=== PATIENT | female | born 1985 | race Caucasian/White ===

== ENCOUNTER 2016-07-07 03:33 | Observation (INO) | payer BC ==
[2016-07-07] MEDS ORDERED: HYDROmorphone INJ* 1 MG/ML CARPUJECT SYRINGE IV PRN ×2 (03:50→10:33)
[2016-07-07] MEDS ORDERED: Ondansetron INJ* 2 MG/ML VIAL IV PRN (03:50)
[2016-07-07] MEDS ORDERED: HYDROmorphone INJ* 1 MG/ML CARPUJECT SYRINGE ONE ×2 (05:28→10:46)
[2016-07-07 06:47] LABS: Hematocrit 25 % (35-47); Hemoglobin 8.1 g/dl (12.0-16.0); Mean Corpuscular HGB Conc 32 g/dl (31-36); Mean Corpuscular Hemoglobin 24 pg (27-31); Mean Corpuscular Volume 75 fL (80-97); Mean Platelet Volume 9 um3 (7.4-10.4); Red Blood Count 3.36 10^6/ul (4.0-5.4); Red Cell Distribution Width 16 % (10.5-15); White Blood Count 9.9 10^3/ul (3.5-10.8)
[2016-07-07 07:05] LABS: BUN/Creatinine Ratio 16.9 (8-20); Calcium 8.5 mg/dL (8.6-10.3); EGFR African American 136.7 (>60); EGFR Non-African American 106.3 (>60)
--- NOTE | 2016-07-07 07:59 | HP ---
DATE OF ADMISSION: 07/07/16 HISTORY OF PRESENT ILLNESS: I was contacted in the overnight by surgeon in [place] regarding Ms. Campbell, a 31-year-old female. She is status post gastric bypass procedure in December 2012 who was mostly lost to follow up and did move out of town. Patient had presented to [facility] in [place] yesterday with an almost one-day history of abdominal pain. Patient's workup in the ER included labs and a CT scan; these were reviewed. There was a consideration of an internal hernia, and patient's surgeon asked to have her transferred to our institution since they do not have bariatric coverage. An ER to ER transfer was agreed upon, and patient presented to our ER early this morning. Patient was seen by the ER doctors, and the case again discussed with me. Patient describes the onset of pain on Wednesday, accompanied with decreased appetite, mild obstipation. Pain mostly on the right side and right upper quadrant. Patient denied any previous similar symptoms, alleviated only by narcotics while hospitalized. No exacerbating factors. No constipation or diarrhea; however, patient has been recently started on Remicade for ulcerative colitis. PAST MEDICAL HISTORY: 1. Ulcerative colitis. 2. Morbid obesity. PAST SURGICAL HISTORY: 1. Karen-en-Y gastric bypass as described. No other abdominal surgeries. MEDICATIONS: Include Remicade. Patient does not routinely take her multivitamins. ALLERGIES: List reviewed. FAMILY HISTORY: Non-contributory. SOCIAL HISTORY: Patient smokes about 1-2 cigarettes a week. 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 Denies alcohol use. Still has a feeling of fullness. REVIEW OF SYSTEMS: No headaches, no shortness of breath, no chest pain. Weight loss of approximately 100 lbs since starting the program; but, about 85 lbs since surgery. Patient had gotten as low as 190 lbs, but now is 212. Change in bowel habits as described above, with history of ulcerative colitis. No dysuria. No bleeding or clotting disorders. However, patient has episodes of anemia secondary to the bypass, and likely the ulcerative colitis. Patient has fair exercise tolerance, but does not exercise on a regular basis. No psychiatric disorders. No recent hospitalizations. Patient denies any visual disturbances. She has not passed out since approximately 2013. She does get dizzy at times. No metabolic or endocrine disorders other than the obesity listed. PHYSICAL EXAMINATION GENERAL: She's alert and oriented x3. No apparent distress. VITAL SIGNS: On exam today, she's afebrile at 98.2, blood pressure 110/48, heart rate 74, respirations 16, O2 sat 97. HEENT: Normocephalic, atraumatic. Sclerae anicteric, mucous membranes moist. NECK: No lymphadenopathy. LUNGS: Clear to auscultation bilaterally. ABDOMEN: Soft, obese, tender on deep palpation in the right upper quadrant and epigastrium. No masses or hernias noted on the abdomen. Well-healed surgical incisions. RECTAL EXAM: Not performed. No CVA tenderness. EXTREMITIES: 1+ pitting edema bilaterally. No cyanosis. LABORATORY DATA FROM [facility]: Reviewed, and show white count 7.2 , H and H 9.3/29.2, with an MCV of 77. Metabolic panel shows sodium 135, calcium 8.5, albumin 3.1, normal transaminases, normal bilirubin. Patient underwent a CAT scan - these images, as well as the report, were reviewed. Normal-appearing gall bladder that is mildly distended, consistent with not eating. Small bowel mesentery shows some inflammatory changes and mesenteric lymphadenopathy. There's no obstruction, but does look consistent with an internal hernia. IMPRESSION: Abdominal pain three years status post gastric bypass in a patient who still has her gall bladder but shows radiographic evidence likely of an internal hernia. RECOMMENDATION: A diagnostic laparoscopy and repair of internal hernia. I've outlined the details of the procedure with her and her mother, going over the risks, benefits and alternatives. I do not recommend watchful waiting at this time, and patient wishes to proceed. We spoke of the possibility of requiring bowel resection and prolonged hospitalization. We also discussed the possible complications which included but are not limited to bleeding, infection, need for open procedure, need for additional procedures, intraabdominal infection, recurrence, and ventral hernia. Patient agrees to proceed. Will get her to the OR soon. She'll be NPO on IV fluids. She'll receive a dose of pre- operative antibiotics. We also discussed the need to get Ms. Campbell back into routine follow-up bariatric care. I believe she would benefit seeing us regularly, and I'd like to refer her for the nut former and for an exercise program. Patient and patient's mother are willing to go in this direction. Will have this discussion at time of discharge. CC: [facility]; Dr. Ayanna Alva; Dr. Alexx Magaña * [id number]/[facility] #: [id number] MTDD
[2016-07-07] MEDS ORDERED: Clindamycin 900 MG IVPREMIX(* 900 MG/50 ML SDV IV ONE ×2 (08:00→09:11)
[2016-07-07 08:32] LABS: UR Preg Kit Lot# 6060104
[2016-07-07 08:33] LABS: Manual Entry Verification AS; UR Preg Internal Control QC Line Present
[2016-07-07] MEDS ORDERED: Bupivacaine 0.25% EPI 200,000* 30 ML SDV ONE (08:33)
[2016-07-07] MEDS ORDERED: fentaNYL* 50 MCG/ML 2 ML VIAL (100 MCG VIAL) ONE ×3 (09:22→10:55)
[2016-07-07] MEDS ORDERED: Midazolam* 1 MG/ML 2 ML VIAL (2 MG) ONE (09:22)
[2016-07-07] MEDS ORDERED: Rocuronium* 10 MG/ML VIAL ONE (09:49)
[2016-07-07] MEDS ORDERED: Propofol* 10 MG/ML 20 ML BTL IV PUSH ONE (10:11)
[2016-07-07] MEDS ORDERED: Dexamethasone IV* 4 MG/ML 1 ML (4 MG) ONE (10:11)
[2016-07-07] MEDS ORDERED: Lidocaine 2% PF * 5 ML VIAL ONE (10:11)
[2016-07-07] MEDS ORDERED: Famotidine IV* 10 MG/ML 2 ML (20 mg) ONE (10:11)
[2016-07-07] MEDS ORDERED: DiMENhydriNATE IV* 50 MG/ML VIAL IV PUSH PRN (10:33)
[2016-07-07] MEDS ORDERED: PROCHLORPERAZINE INJ 5 MG/ML 2 ML VIAL IV PRN (10:33)
[2016-07-07] MEDS ORDERED: fentaNYL* 50 MCG/ML 2 ML VIAL (100 MCG VIAL) IV PRN (10:33)
[2016-07-07] MEDS ORDERED: Ondansetron INJ* 2 MG/ML VIAL ONE ×2 (11:18→11:59)
[2016-07-07] MEDS ORDERED: Neostigmine Methylsulfate* 2 MG/2 ML SYRINGE ONE (11:46)
[2016-07-07] MEDS ORDERED: Glycopyrrolate IV* 0.2 MG/ML 1 ML VIAL ONE (11:46)
[2016-07-07] MEDS ORDERED: oxyCODONE/Acetamin 5/325 MG* TAB ONE (14:03)
[2016-07-07 15:06] VITALS: BP 101/71
--- NOTE | 2016-07-08 00:39 | OP ---
DATE OF OPERATION: 07/07/16 - ROOM #332 DATE OF : 85 SURGEON: Dawood Pereira MD TUNNELING MACHINE OPERATOR: MEETA Lucas ANESTHESIOLOGIST: Dr. Aragon. ANESTHESIA: General anesthesia. PRE-OP DIAGNOSIS: Abdominal pain. POST-OP DIAGNOSIS: Internal hernia. OPERATIVE PROCEDURE: Diagnostic laparoscopy and repair of internal hernia. SPECIMENS: None. ESTIMATED BLOOD LOSS: Minimal. FLUIDS: Minimal crystalloid fluid given. DESCRIPTION OF PROCEDURE: The patient was identified in the preoperative area by the anesthesiologist, brought to the OR, placed on the operating table in the supine position. Preoperative antibiotics were given. Sequential devices were placed on bilateral lower extremities. General anesthesia was induced. The patient's abdomen was prepped and draped in the standard surgical fashion. A time- out was performed. Folds of the umbilicus were elevated anteriorly and a Veress needle was inserted into the abdominal cavity. Attempted placement proved difficult and this was abandoned. Next, a right upper quadrant incision was made at 2 fingerbreadths below the lower costal margin just at the mid clavicular line. This was deepened down to the anterior fascia which was elevated and a Veress needle was successfully placed into the abdomen, which was then allowed to insufflate to a pressure of 15 mmHg. The patient tolerated the insufflation well. Veress needle was removed and a 12-mm trocar was inserted at the site. 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 Small bowel was minimally injected, but with no bowel at this point that showed ischemic changes. Additional trocars were then placed in the following position: A 5-mm in the umbilicus and a 5-mm in the left lower quadrant. Attention was turned towards the pelvis. Chylous ascites was removed. There was no evidence of pus. The fimbria on the right showed signs of some injection but no infection. The cecum was identified. Small bowel was run retrograde from the terminal ileum. It should be noted that the jejunojejunostomy was in the right upper quadrant. During this dissection, we removed a small as we ran the bowel retrograde. The bowel was not dilated and we ran this successfully to the jejunojejunostomy. At this point, it was felt that we likely reduced the hernia as the jejunojejunostomy is now up in left upper quadrant with the Karen limb in proper orientation. This was run retrograde to the gastrojejunostomy which was intact. The candy cane portion of the anastomosis was approximately 5 cm. There was some scarring at the underside of the liver with no significant scarring at this site. Next, the biliopancreatic limb was also run retrograde to the ligament of Treitz. Next, we reviewed the jejunojejunostomy and the intestines at this site showed pallor along the mesentery consistent with possible scarring from frequent internal herniation. No defect at the jejunojejunostomy was appreciated. Review of the retro Karen limb showed a gap that was likely the culprit. We ran the silk suture along the mesentery of the Karen limb to the mesentery of the transverse colon to obliterate this defect being sure to push the biliopancreatic limb which is attempting to ride up through this site. With this fully closed, the 12-mm trocar at the right upper quadrant was reapproximated at the fascial layer with an 0 Polysorb suture with an EndoClose device. The abdomen was allowed to collapse. The trocars removed under direct vision and all 4 skin incisions were closed with 4-0 Monocryl subcuticular sutures followed by sterile dressings. It should be noted that when we placed sutures to close the defect in the retro Karen limb site, we did place a 5-mm trocar in the left lateral abdomen. The patient tolerated the procedure well, was transferred to the PACU in stable condition. [id number]/[facility] #: [id number] ADELINA
--- NOTE | 2016-07-17 03:20 | DS ---
DISCHARGE SUMMARY: DATE OF ADMISSION: 07/07/16 DATE OF DISCHARGE: 07/07/16 HOSPITAL COURSE: Please refer to admission History and Physical for admission details. The patient was taken to the operating room on 07/07/16, at which time she underwent diagnostic laparoscopy with repair of an internal hernia by Dr. Pereira. The patient was felt to be doing enough to be discharged from the recovery room per protocol. A prescription for Percocet was e-sent to her pharmacy. A followup was arranged for our office for approximately 1 week later. Instructions were given in written form. MEETA NAYLOR CC: Ayanna Alva MD; Dawood Pereira MD; [facility]* [id number]/[facility] #: [id number] MTDD
--- NOTE | 2016-10-16 02:54 | ED ---
toney Chicas Timothy, scribed for Ladarius Jensen on 07/07/16 at 0352 . Abdominal Pain/Female - HPI Summary HPI Summary: Delphine Campbell is a 31 yo female presenting to [facility] with 6/10 constant lower right sided abd pain since 07/05/16. She is a transfer from [place]. She denies any N/V. Her MHx includes thyroid disease, ulcerative colitis. She is a tobacco smoker. - History of Current Complaint Stated Complaint: XFER FROM [facility] Time Seen by Provider: 07/07/16 03:48 Hx Obtained From: Patient Onset/Duration: Gradual Onset, Lasting Days, Still Present Timing: Constant Severity Initially: Moderate Severity Currently: Moderate Pain Intensity: 6 Pain Scale Used: 0-10 Numeric Location: Discrete At: RLQ Allergies/Adverse Reactions: Allergies Allergy/AdvReac Type Severity Reaction Status Date / Time Penicillins [PCN] Allergy Mild Hives Verified 08/27/16 14:42 Amoxicillin [From Augmentin] Allergy Unknown Verified 08/27/16 14:42 Reaction Details Clavulanic Acid Allergy Unknown Verified 08/27/16 14:42 [From Augmentin] Reaction Details PMH/Surg Hx/FS Hx/Imm Hx Endocrine/Hematology History: Reports: Hx Thyroid Disease - WAS ON MEDS FOR SHORT TIME, LEVELS OK NOW Cardiovascular History: Denies: Other Cardiovascular Problems/Disorders GI History: Reports: Other GI Disorders - ULCERATIVE COLITIS Musculoskeletal History: Denies: Other Musculoskeletal History Sensory History: Reports: Hx Contacts or Glasses - GLASSES Denies: Hx Hearing Aid Opthamlomology History: Reports: Hx Contacts or Glasses - GLASSES Neurological History: Denies: Other Neuro Impairments/Disorders - Surgical History Hx Anesthesia Reactions: No Infectious Disease History: Denies: Hx Clostridium Difficile, Hx Hepatitis, Hx Human Immunodeficiency Virus (HIV), Hx of Known/Suspected MRSA, Hx Shingles, Hx Tuberculosis, Hx Known/ Suspected VRE, Hx Known/Suspected VRSA, History Other Infectious Disease, Traveled Outside the [place] in Last 30 Days - Family History Known Family History: Negative: Cardiac Disease, Hypertension, Diabetes - Social History Alcohol Use: Occasionally Substance Use Type: Reports: None Smoking Status (MU): Light Every Day Tobacco Smoker Type: Cigars Amount Used/How Often: 2 cigars/week Have You Smoked in the Last Year: Yes Review of Systems Constitutional: Negative Eyes: Negative ENT: Negative Cardiovascular: Negative Respiratory: Negative Positive: Abdominal Pain - RLQ. Negative: Vomiting, Nausea Genitourinary: Negative Musculoskeletal: Negative Skin: Negative Neurological: Negative Psychological: Normal All Other Systems Reviewed And Are Negative: Yes Physical Exam Triage Information Reviewed: Yes Vital Signs On Initial Exam: Initial Vital Signs Temp 96.8 F 07/07/16 03:46 Pulse 85 07/07/16 03:46 Resp 20 07/07/16 03:46 BP 113/55 07/07/16 03:46 Pulse Ox 100 07/07/16 03:46 Vital Signs Reviewed: Yes Appearance: Positive: Well-Appearing, No Pain Distress Skin: Positive: Warm, Skin Color Reflects Adequate Perfusion, Dry Head/Face: Positive: Normal Head/Face Inspection Eyes: Positive: EOMI, BRANDY ENT: Positive: Normal ENT inspection Neck: Positive: Supple, Nontender Respiratory/Lung Sounds: Positive: Clear to Auscultation, Breath Sounds Present Cardiovascular: Positive: RRR, Pulses are Symmetrical in both Upper and Lower Extremities Abdomen Description: Negative: Nontender - RLQ tenderness to palpation Bowel Sounds: Positive: Present Musculoskeletal: Positive: Normal, Strength/ROM Intact Neurological: Positive: Normal, Sensory/Motor Intact, Alert, Oriented to Person Place, Time Psychiatric: Positive: Normal Diagnostics - Vital Signs Vital Signs Temp Pulse Resp BP Pulse Ox 07/07/16 03:46 96.8 F 85 20 113/55 100 07/07/16 03:38 81 99 07/07/16 03:37 123/66 - Laboratory Result Diagrams: 07/07/16 06:08 07/07/16 06:08 Lab Statement: Any lab studies that have been ordered have been reviewed, and results considered in the medical decision making process. Abdominal Pain Fem Course/Dx - Course Course Of Treatment: Mercedes Campbell is a 31 yo female presenting to [facility] as a transfer from [place] with 6/10 RLQ abd pain. After discussion with Dr. Pereira and clinical examination, she will be admitted to [facility] - Diagnoses Differential Diagnosis: Positive: Other - abdominal pain Provider Diagnoses: Abdominal pain - Provider Notifications Discussed Care Of Patient With: 0347 - Kelli (surgery) - discussed Pt condition. Recommends admission. Instructed by Provider To: Admit As Inpatient Discharge - Discharge Plan Condition: Stable Disposition: ADMITTED TO [facility] The documentation as recorded by the scribetoney Timothy accurately reflects the service I personally performed and the decisions made by me, Ladarius Jensen.
== END 2016-07-07 15:00 | disposition home or self-care (01) ==
LOC: ED 03:33 → SSU 03:50
PROVIDERS: ADMIT Surgery; ATTEND Surgery
DX: K46.9 Unspecified abdominal hernia without obstruction or gangrene (principal); R18.8 Other ascites; E66.01 Morbid (severe) obesity due to excess calories
CPT/HCPCS: 36415; 80048; 81025; 85025; 96374; 96375; 99284; A9270-GY; J1100; J1170; J2250; J2405; J2704; J3010

== ENCOUNTER 2016-07-08 14:11 | Observation (INO) | payer BC ==
[2016-07-08] MEDS ORDERED: Ondansetron INJ* 2 MG/ML VIAL IV PRN (15:24)
[2016-07-08] MEDS: HYDROcodone/ACETAMIN 5-325 MG* 1 TAB PO PRN ×2 (15:41→19:48)
[2016-07-08] MEDS: oxyCODONE/Acetamin 5/325 MG* TAB PO PRN ×2 (17:28→22:56)
[2016-07-08 17:59] LABS: Hematocrit 26 % (35-47); Hemoglobin 8.2 g/dl (12.0-16.0); Mean Corpuscular HGB Conc 31 g/dl (31-36); Mean Corpuscular Hemoglobin 23 pg (27-31); Mean Corpuscular Volume 76 fL (80-97); Mean Platelet Volume 8 um3 (7.4-10.4); Red Cell Distribution Width 16 % (10.5-15); White Blood Count 10.3 10^3/ul (3.5-10.8)
[2016-07-08 18:13] LABS: BUN/Creatinine Ratio 11.8 (8-20); Calcium 8.7 mg/dL (8.6-10.3); EGFR African American 100.3 (>60); Potassium 3.6 mmol/L (3.5-5.0)
--- NOTE | 2016-07-08 20:03 | CONS ---
CONSULTATION NOTE: DATE OF CONSULT: 07/08/16 REASON FOR CONSULTATION: Right-sided abdominal pain, postop day 1 from correction of an internal hernia. NARRATIVE: Ms. Campbell is a 31-year-old woman who I have seen in the past for ulcerative colitis. She underwent bariatric surgery about 3-1/2 years ago, Karen -en- Y gastric bypass and ended up losing over 100 pounds. She has been doing relatively well. On Wednesday of this week, she developed severe, rather diffuse but primarily left-sided abdominal pain. She had no associated diarrhea , GI bleeding, nausea, or vomiting. She ended up going to an outside emergency room, and a CAT scan of the abdomen was performed which suggested an internal hernia and for that reason, she was transferred to our facility to be with her bariatric surgeon, Dr. Pereira. Yesterday, she underwent laparoscopy with repair of an internal hernia. Findings demonstrated some chylous ascites, no pus. There was minimal injection of the small bowel, but no ischemic change. The bowel was run and found to have no other abnormality. She went to PACU after that and according to the patient and her mother, she continued to have pain, although of a different quality and location, primarily in the right side of her abdomen, particularly when she takes a deep breath in. She was discharged on Percocet, but continued to have pain through the night and into the morning. She has been constipated in the last 5 days and as a consequence of that, she self-medicated with a stool softener and milk of magnesia, but has not had a bowel movement today. She has been passing some flatus. She has had no fevers or chills and was able to have some soup. She has had some nausea. For this reason, she was readmitted to the hospital. The patient currently describes a pain primarily in the right side of her abdomen, particularly when she takes a deep breath in or moves. She states that it reminds her of the pain she had postoperatively after her initial Karen-en-Y gastric bypass surgery, which took a few days to recover. Of note, the patient again has a history of ulcerative colitis. She has recently been in the midst of a flare characterized by diarrhea and rectal bleeding, although no abdominal pain. She had previously been on Remicade, but that was discontinued and about a week ago got her first infusion of Remicade, which she tolerated well and has since not had any bleeding and had a formed stool a few days thereafter. She had previously been on steroids as well. PAST MEDICAL HISTORY: Again includes ulcerative colitis and morbid obesity. SURGICAL HISTORY: Includes a Karen-en-Y gastric bypass as described above. There is no other abdominal surgeries. MEDICATIONS: Again was Remicade received approximately a week ago. REVIEW OF SYSTEMS: She has had no melena or rectal bleeding lately. She does pass some flatus. She has had no back pain or jaundice. PHYSICAL EXAM: She is an obese woman, describing a fair amount of pain in the right side, but in no acute distress. Temperature is 98.1, blood pressure is 119/59, heart rate is 67 and regular. Skin turgor is normal. She is anicteric. Cardiac exam reveals a regular rhythm without murmur. Abdomen shows fresh laparoscopy scars, which have pads on them that are not draining. Her abdomen is very soft, but there is mild tenderness in the right side of her abdomen to palpation without rebound or guarding. Bowel sounds are hypoactive, but present. DIAGNOSTIC STUDIES/LAB DATA: Data is pending at this time. IMPRESSION: A 31-year-old woman with a history of ulcerative colitis, bariatric surgery who is 1 day postop from correction of an internal hernia who now presents with abdominal pain. Her pain as described by the patient is different than her preoperative pain and perhaps this is just incisional pain during the healing process. She states that it is similar to when she previously had her original Karen-en-Y gastric bypass. It would be unlikely for the internal hernia to recur in such short period of time and her symptoms will be very atypical for active ulcerative colitis, which actually is improving on Remicade therapy. I would recommend, as Dr. Pereira has already ordered, pain control, check on labs and if her pain continues, we can consider repeat imaging. Again, my sense is this is incisional pain and perhaps with just pain control over the next 24 to 48 hours, it should resolve. CC: Dr. Pereira; Dr. Alva* [id number]/[facility] #: [id number] [facility]
--- NOTE | 2016-07-08 21:28 | HP ---
H&P (Free Text) History and Physical: H and P update. Pt discharged yesterday after Diagnostic laparoscopy, repair of internal hernia. She continurd to have worsening pain. No appetite. No BM. Low greade fevers at home. I spoke to her on the phone twice today , and with worsenign pain, I direct admitted her. POD1 diagnostic laparoscopy PMH/PSH/Meds: please see initial H and P. ROS: No headches. No chills, fevers as described. No SOB, chest pain, or palpitations. GI symptoms as described. PE: Af VSS a and o x 3, nad lungs : clear abdo: soft/ obese/ tender at R w/o rebound dressing intact; hypoactive BS no calf tenderness labs noted Impression: POD 1 Dx lap, for internal hernia. DDx post op pain, constipation, intraabdominal injury Plan pain control bowel regimen IVF
[2016-07-08] MEDS: Heparin VIAL(*) 5000 UNITS/ML VIAL (FIVE THOUSAND) SUBCUT SCH (21:31)
[2016-07-08] MEDS: Bisacodyl EC TAB* 5 MG PO SCH (22:56)
[2016-07-09] MEDS: Heparin VIAL(*) 5000 UNITS/ML VIAL (FIVE THOUSAND) SUBCUT SCH ×3 (05:54→23:44)
[2016-07-09 07:05] LABS: Hematocrit 25 % (35-47); Mean Corpuscular HGB Conc 32 g/dl (31-36); Mean Corpuscular Hemoglobin 24 pg (27-31); Mean Corpuscular Volume 76 fL (80-97); Mean Platelet Volume 8 um3 (7.4-10.4); Red Blood Count 3.31 10^6/ul (4.0-5.4); Red Cell Distribution Width 17 % (10.5-15); White Blood Count 8.3 10^3/ul (3.5-10.8)
[2016-07-09] MEDS: HYDROcodone/ACETAMIN 5-325 MG* 1 TAB PO PRN ×2 (07:16→12:12)
[2016-07-09] MEDS: Bisacodyl EC TAB* 5 MG PO SCH (09:24)
--- NOTE | 2016-07-09 12:09 | PN ---
Progress Note - Progress Note SOAP: Subjective: Pt seen and examined. Still c/o Right sided pain. No flatus, No BM. No nausea. Objective: af vss lungs clear abdo: soft/ ND/ incisional tenderness. hypoactive BS NO calf tenderness Labs noted Assessment: POD2 Dx lap, with post operative pain Plan: pain control advance diet d/c planning
[2016-07-09] MEDS ORDERED: Acetaminophen TAB* 325 MG PO PRN (18:35)
[2016-07-10] MEDS: Heparin VIAL(*) 5000 UNITS/ML VIAL (FIVE THOUSAND) SUBCUT SCH (06:09)
[2016-07-10 09:07] VITALS: BP 91/45
[2016-07-10] MEDS: Bisacodyl EC TAB* 5 MG PO SCH (09:10)
--- NOTE | 2016-07-10 09:37 | PN ---
Progress Note - Progress Note SOAP: DISCHARGE NOTE Subjective:passing small flatus,cait po,ambulating,voiding large,wants to go home [] Objective:abd:+bs,obese,soft,incisions C/D/I with steristrips,no erythema or drainage [] Assessment:stable,s/p readmission for worsening abd pain,POD#3 s/p dx lap for internal hernia [] Plan:Discharge home today,discussed with Dr Pereira;instructions reviewed,dietary suggestions reviewed,use stool softener daily;use minimal opiods,no additional narcotic rx given,office followup 07/13/16 []
--- NOTE | 2016-07-10 13:36 | DS ---
DISCHARGE SUMMARY: DATE OF ADMISSION: 07/08/16 DATE OF DISCHARGE: 07/10/16 DATE OF DICTATION OF THE DISCHARGE SUMMARY: 07/10/16 ATTENDING SURGEON: Dawood Pereira MD HOSPITAL COURSE: The patient underwent diagnostic laparoscopy and repair of internal hernia by Dr. Pereira on 07/07/16 and was discharged home. She returned to [facility] [place] on with complaints of worsening right-sided abdominal pain, no appetite, and constipation. She denied any fever or chills or nausea or vomiting. She was admitted by Dr. Pereira for pain control, IV fluids, and bowel regimen. Over the past 24 hours, she has been advancing her diet and tolerating regular foods, she denies increasing abdominal pain and is passing flatus, but has not yet had a bowel movement. She wishes to go home. PHYSICAL EXAMINATION: General: Well-appearing, in no acute distress. Vital signs: Stable. She is afebrile and her O2 saturation on room air is 100%. Lungs: Breath sounds bilaterally clear and equal. Heart: Regular rate and rhythm. No murmurs or rubs appreciated. Abdomen: Obese. Active bowel sounds , soft, and nondistended; all of the laparoscopic incisions are intact with Steri-Strips and are clean and dry without any surrounding erythema. Extremities: Warm and nontender. IMPRESSION: Stable 3 days status post diagnostic laparoscopy and repair of internal hernia, tolerating a regular diet, and passing flatus. PLAN: I discussed with Dr. Pereira; discharge home today; the discharge instructions were reviewed with the patient; she was advised to use minimal opioids and to start using a stool softener daily at bedtime; no additional narcotic prescriptions were provided; I reviewed a high-protein diet and reviewed the recommended post- bariatric vitamin regimen and encouraged her to drink plenty of water. She will have a followup visit with Dr. Pereira at our office on 07/13/16 and knows to call sooner with any concerns. TIME SPENT: Time spent discharging patient was 40 minutes with greater than 50 % was spent in [id number] counselling and discharge instructions. CONDITION AT DISCHARGE: Stable. PAUL GONZALEZ, CONFIDENTIAL SECRETARY [id number]/[facility] #: [id number] ADELINA
== END 2016-07-10 10:30 | disposition home or self-care (01) ==
LOC: SSU 15:03
PROVIDERS: ADMIT Surgery; ATTEND Surgery
DX: R10.9 Unspecified abdominal pain (principal); Z98.890 Other specified postprocedural states; T81.89XA Other complications of procedures, not elsewhere classified, initial encounter
CPT/HCPCS: 36415; 80048; 85025; A9270-GY; G0378; J1644

== ENCOUNTER 2016-10-16 15:41 | Observation (INO) | payer BC ==
[2016-10-16] MEDS ORDERED: Acetaminophen TAB* 325 MG PO PRN (16:09)
[2016-10-16] MEDS: Morphine INJ* 4 MG/ML 1 ML SYRINGE IV PRN (17:21)
[2016-10-16] MEDS: Ondansetron INJ* 2 MG/ML VIAL IV PRN (17:24)
[2016-10-16] MEDS ORDERED: Iohexol 300* (CONTRAST) 10 ML SDV IV ONE (18:40)
--- NOTE | 2016-10-16 19:46 | RAD ---
CLINICAL HISTORY: Bowel obstruction, internal hernia COMPARISON: None TECHNIQUE: Multiple contiguous axial CT scans were obtained of the abdomen and pelvis after the administration of intravenous contrast. Coronal and sagittal multiplanar reformations are submitted for review. Oral contrast was administered. Delayed images were obtained through the abdomen and pelvis. FINDINGS: LUNG BASES: The lung bases are clear. LIVER: The liver is normal in shape, size, contour, and attenuation. BILE DUCTS: There is no intrahepatic or extrahepatic biliary dilatation. GALLBLADDER: The gallbladder is normal, without pericholecystic inflammatory change. PANCREAS: The pancreas is normal, without mass or ductal dilatation. SPLEEN: Normal in size and appearance. UPPER GI TRACT: Evaluation of the gastrointestinal tract is limited by incomplete gastric distention. There is postsurgical change the upper GI tract. SMALL BOWEL AND MESENTERY: The small bowel is normal in contour, course, and caliber. There is no obstruction or dilatation. COLON: The colon is normal in contour, course, caliber. There is no pericolonic inflammatory change. ADRENALS: Normal bilaterally. KIDNEYS: The kidneys are normal in shape, size, contour, and axis. There is no hydronephrosis or nephrolithiasis. BLADDER: The bladder is incompletely distended but is grossly normal. PELVIC ORGANS: The uterus and adnexa are grossly normal for technique. AORTA: The aorta is normal. IVC: Unremarkable LYMPH NODES: There is no lymphadenopathy by size criteria. ABDOMINAL WALL: There is postsurgical change to the anterior abdominal wall. BONES AND SOFT TISSUES: Mild degenerative changes are noted, most pronounced at L3-L4 with a limbus vertebral body of the L4. OTHER: None IMPRESSION: NO ACUTE CT PATHOLOGY OF THE VISUALIZED ABDOMEN OR PELVIS. NO OBSTRUCTION.
--- NOTE | 2016-10-16 22:26 | HP ---
ADMISSION HISTORY AND PHYSICAL: DATE OF ADMISSION: 10/16/16 ATTENDING SURGEON: Dr. Deuce Hanson. (DICTATED BY MEETA NAYLOR) CHIEF COMPLAINT: Abdominal pain. HISTORY OF PRESENT ILLNESS: This is a 31-year-old female status post laparoscopic Karen-en-Y gastric bypass with Dr. Pereira in 2012 and status post laparoscopic repair of internal hernia in June of this year, also by Dr. Pereira, who presents with onset of upper abdominal pain beginning this morning. She states that the pain feels exactly the same as it did in June at the time of her obstruction and she realized that she should not wait as long as she did at that time to seek attention (3 days). Pain is located in the left upper quadrant. It does not seem to radiate. It is associated with nausea and anorexia, but she has had no vomiting or regurgitation. She does describe increased belching. Her intake today has consisted of one bite of toast and no fluids. Her pain level at present is approximately 6/10 and she describes it as being steady. She had a normal bowel movement this morning. She has had no flatus since. PAST MEDICAL HISTORY: Morbid obesity, ulcerative colitis (followed by Dr. Magaña). PREVIOUS SURGERIES: As noted above, Karen-en-Y gastric bypass, 2012; laparoscopic repair of internal hernia, June 2016. CURRENT MEDICATIONS: 1. Remicade 100 mg infusion every 8 weeks. 2. Multivitamin adult strength 2 tablets once daily. 3. Vitamin B12, dose not specified, sublingual once daily. 4. Vitamin D, dose not specified, once daily. DRUG ALLERGIES: PENICILLIN and AUGMENTIN. FAMILY HISTORY: Noncontributory. SOCIAL HISTORY: Per her recent history, she smokes 1 to 2 cigarettes per week. Denies alcohol use. 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 REVIEW OF SYSTEMS: General: No other recent constitutional symptoms or acute illnesses. Her weight has remained fairly stable (she had initial weight loss of approximately 100 pounds and regained some weight). Cardiovascular: No history of hypertension, chest pain, palpitations, or heart murmur. Respiratory : No history of asthma, chronic cough, or shortness of breath. GI: As above. No recent flares of her ulcerative colitis. : No problems reported. KAIAKO KURA [place] MAORI: I did not enquire. Hematological/Oncological: She was found on lab work in June to be mildly anemic as well as low serum iron. Endocrine: No diabetes or thyroid dysfunction. PHYSICAL EXAMINATION GENERAL: Well-nourished, morbidly obese female in no acute distress, but appears moderately uncomfortable. VITAL SIGNS: Height 61 inches, weight 222 pounds, BMI 41.9, temperature 97.8, blood pressure 122/71, pulse 90, respirations 18. HEENT: Pupils equal, round, and reactive. EOMs intact. Conjunctivae pink. Oropharynx: Mucous membranes moist. Teeth in good repair. No intraoral lesions. NECK: No lymphadenopathy, thyromegaly, or masses. LUNGS: Clear to auscultation. No wheezes. HEART: Regular rate and rhythm. No murmur noted. BREASTS: Not examined. ABDOMEN: Well-healed laparoscopic incision sites. Soft. Nondistended. No tympany. Mild to moderate tenderness in the left upper quadrant. The remainder of the abdomen is relatively soft and nontender and without palpable masses or organomegaly. EXTREMITIES: No edema. GENITALIA AND RECTAL: Not done. BACK: No spinous process or CVA tenderness. NEUROLOGICAL: Grossly intact. SKIN: Warm and dry. No suspicious rashes or lesions. IMPRESSION: Possible internal hernia. PLAN: Case was discussed with both Dr. Pereira and Dr. Hanson (surgeon on- call who also examined the patient). Decision was [place] [facility] [place] hydration and to obtain the following studies: CBC , CMP, and CT of the abdomen and pelvis with oral and IV contrast. Dr. Pereira would plan to reexamine her in the morning and pending all of these findings, decide in terms of surgical intervention. MEETA NAYLOR CC: Dr. Ayanna Alva at [facility]; Dr. Alexx Magaña* [id number]/[facility] #: [id number] MTDD
[2016-10-17] MEDS: Ondansetron INJ* 2 MG/ML VIAL IV PRN (02:06)
[2016-10-17] MEDS: Morphine INJ* 4 MG/ML 1 ML SYRINGE IV PRN (02:06)
--- NOTE | 2016-10-17 10:01 | PN ---
Progress Note - Progress Note SOAP: Subjective: [Pt seen and examined. chart reviewed including previous operative reports, current labs and CT scan. Acute onset LUQ abdo pain starting yesterday. Pain similar to June when pt went OR for Dx Lap. Pt has some nausea. No appetite (although typical for her in am). pain 5/10. non radiating. Objective: af vss MAP in 50s overnight. lungs clear abdo : soft/ND/minimal tenderness at RUQ LUQ. No rebound, no guarding. normoactive BS. no hernias no calf tenderness labs noted, anemic CT reviewed Assessment: abdo pain, unclear etiology. DDX internal hernia (unlikely however), PUD, dumping s/d, Plan: restart diet likely d/c home today with follow up Wednesday morning with me.
[2016-10-17 11:36] VITALS: BP 97/48
== END 2016-10-17 12:10 | disposition home or self-care (01) ==
LOC: SSU 15:54 → INTOOBSV 15:54
PROVIDERS: ADMIT Surgery; ATTEND Surgery
DX: R10.12 Left upper quadrant pain (principal); Z98.84 Bariatric surgery status; Z79.899 Other long term (current) drug therapy; F17.210 Nicotine dependence, cigarettes, uncomplicated
CPT/HCPCS: 74177; 96374; 96375; 96376; A9270-GY; G0378; J2270; J2405; Q9967

== ENCOUNTER 2017-01-08 02:13 | Emergency (ER) | payer BC ==
[2017-01-08] MEDS ORDERED: NS 0.9% 1000 ML* 1,000 ML IV ONE (03:06)
[2017-01-08 04:00] LABS: Hematocrit 32 % (35-47); Hemoglobin 9.8 g/dl (12.0-16.0); Mean Corpuscular HGB Conc 31 g/dl (31-36); Mean Corpuscular Hemoglobin 21 pg (27-31); Mean Platelet Volume 8 um3 (7.4-10.4); Red Blood Count 4.62 10^6/ul (4.0-5.4); Red Cell Distribution Width 20 % (10.5-15); White Blood Count 8.2 10^3/ul (3.5-10.8)
[2017-01-08 04:09] LABS: Mean Corpuscular Volume 68 fL (80-97)
[2017-01-08 04:10] LABS: Comments Flag Yes
[2017-01-08 04:15] LABS: Albumin 4.3 g/dL (3.2-5.2); Calcium 9.2 mg/dL (8.6-10.3); EGFR African American 107.6 (>60); EGFR Non-African American 83.7 (>60); Globulin 4.1 g/dL (2-4); Magnesium 2.1 mg/dL (1.9-2.7); Potassium 4.1 mmol/L (3.5-5.0); Total Bilirubin 0.4 mg/dL (0.2-1.0); Total Protein 8.4 g/dL (6.4-8.9)
--- NOTE | 2017-01-08 04:16 | ED ---
Mehran Chicas Thomas, scribed for Stu Moseley MD on 01/08/17 at 0332 . Dizziness - HPI Summary HPI Summary: The pt is a 31 y/o F presenting to the ED c/o sudden-onset dizziness characterizes as inability to look straight that began today at 00:30. The dizziness is aggravated by moving her eyes and is alleviated by nothing. 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 Pt additionally c/o diaphoresis, N/V/D, blurred vision. She reports that a year ago, she had complaints of dizziness, diarrhea, and syncope with LOC. PMHx: ulcerative colitis. PSHx: gastric bypass. SHx: smoker, occasional alcohol use, no illicit drug use. - History Of Current Complaint Chief Complaint: EDDizziness Stated Complaint: DIZZINESS Time Seen by Provider: 01/08/17 03:00 Hx Obtained From: Patient Onset/Duration: Suddenly Timing: Constant Character: Room Spinning - "inability to see straight" Aggravating Factor(s): Other - Moving eyes Alleviating Factor(s): Nothing Associated Signs And Symptoms: Positive: Nausea, Vomiting, Diarrhea, Diaphoresis , Other: - POS: blurred vision. Negative: Fever - Allergies/Home Medications Allergies/Adverse Reactions: Allergies Allergy/AdvReac Type Severity Reaction Status Date / Time Penicillins [PCN] Allergy Mild Hives Verified 12/17/16 15:47 Amoxicillin [From Augmentin] Allergy Unknown Verified 12/17/16 15:47 Reaction Details Clavulanic Acid Allergy Unknown Verified 12/17/16 15:47 [From Augmentin] Reaction Details PMH/Surg Hx/FS Hx/Imm Hx Previously Healthy: No Endocrine/Hematology History: Reports: Hx Thyroid Disease - WAS ON MEDS FOR SHORT TIME, LEVELS OK NOW Cardiovascular History: Denies: Other Cardiovascular Problems/Disorders Respiratory History: Denies: Hx Asthma, Hx Sleep Apnea GI History: Reports: Other GI Disorders - ULCERATIVE COLITIS Musculoskeletal History: Denies: Other Musculoskeletal History Sensory History: Reports: Hx Contacts or Glasses Denies: Hx Hearing Aid Opthamlomology History: Reports: Hx Contacts or Glasses Neurological History: Denies: Other Neuro Impairments/Disorders - Surgical History Surgery Procedure, Year, and Place: gastric bypass 2013, hernia repair on Hx Anesthesia Reactions: No Infectious Disease History: Denies: Hx Clostridium Difficile, Hx Hepatitis, Hx Human Immunodeficiency Virus (HIV), Hx of Known/Suspected MRSA, Hx Shingles, Hx Tuberculosis, Hx Known/ Suspected VRE, Hx Known/Suspected VRSA, History Other Infectious Disease, Traveled Outside the [place] in Last 30 Days - Family History Known Family History: Negative: Cardiac Disease, Hypertension, Diabetes - Social History Alcohol Use: Occasionally Substance Use Type: Reports: None Smoking Status (MU): Current Some Day Smoker Type: Cigars Amount Used/How Often: 2 cigar/week Have You Smoked in the Last Year: Yes Review of Systems Positive: Skin Diaphoresis. Negative: Fever Positive: Blurred Vision Positive: Vomiting, Diarrhea, Nausea Neurological: Other - POS: dizziness ("inability to look straight") All Other Systems Reviewed And Are Negative: Yes Physical Exam Triage Information Reviewed: Yes Vital Signs On Initial Exam: Initial Vitals Temp 96.9 F 01/08/17 02:18 Vital Signs Reviewed: Yes Appearance: Positive: Well-Appearing, No Pain Distress Skin: Positive: Warm Head/Face: Positive: Normal Head/Face Inspection Eyes: Positive: EOMI, BRANDY ENT: Positive: Hearing grossly normal Neck: Positive: Supple Respiratory/Lung Sounds: Positive: Clear to Auscultation, Breath Sounds Present Cardiovascular: Positive: RRR Abdomen Description: Positive: Nontender, Soft Bowel Sounds: Positive: Present Musculoskeletal: Positive: Strength/ROM Intact Neurological: Positive: Sensory/Motor Intact, Alert, Oriented to Person Place, Time, Normal Gait Psychiatric: Positive: Affect/Mood Appropriate - Swati Coma Scale Coma Scale Total: 15 Diagnostics - Vital Signs Vital Signs Temp Pulse 01/08/17 02:29 66 01/08/17 02:18 96.9 F - Laboratory Result Diagrams: 01/08/17 03:50 01/08/17 03:50 Lab Statement: Any lab studies that have been ordered have been reviewed, and results considered in the medical decision making process. Re-Evaluation - Re-Evaluation First Eval Re-Evaluation Time: 05:22 Change: Improved Comment: She is able to keep liquids down Dizzy Course/Dx - Course Assessment/Plan: The pt is a 31 y/o F presenting to the ED c/o sudden-onset dizziness characterizes as inability to look straight that began today at 00: 30. The dizziness is aggravated by moving her eyes and is alleviated by nothing. 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 Pt additionally c/o diaphoresis, N/V/D, blurred vision. She reports that a year ago , she had complaints of dizziness, diarrhea, and syncope with LOC. PMHx: ulcerative colitis. PSHx: gastric bypass. SHx: smoker, occasional alcohol use, no illicit drug use. In the ED course the patient was given IV fluids. Blood work shows Hgb 9.8, Hct 32, Plt count 465, Sodium 130, CO2 20, Glucose 134, Globulin 4.1. UA shows 1+ ketones. Patient is diagnosed with dizziness. Patient will be discharged home with follow up by PCP. Patient is agreeable to this plan. - Diagnoses Provider Diagnoses: Dizziness Discharge - Discharge Plan Condition: Improved Disposition: HOME Patient Education Materials: Dizziness (ED) Referrals: Ayanna Alva MD [Primary Care Provider] - 3 Days The documentation as recorded by the Mehran gaston Thomas accurately reflects the service I personally performed and the decisions made by me, Stu Moseley MD.
[2017-01-08 04:38] LABS: TSH (Thyroid Stimulating Horm) 2.3 mcIU/mL (0.34-5.60)
[2017-01-08 05:06] LABS: Urine Bilirubin Negative (Negative); Urine Glucose Negative (Negative); Urine Nitrite Negative (Negative)
[2017-01-08 06:10] VITALS: BP 112/60
== END 2017-01-08 06:31 | disposition home or self-care (01) ==
LOC: ED 02:13
DX: R42 Dizziness and giddiness (principal); R61 Generalized hyperhidrosis; R11.2 Nausea with vomiting, unspecified; R19.7 Diarrhea, unspecified; H53.8 Other visual disturbances; Z88.1 Allergy status to other antibiotic agents; Z88.0 Allergy status to penicillin; Z98.84 Bariatric surgery status; Z72.0 Tobacco use
CPT/HCPCS: 36415; 80053; 81003; 83735; 84443; 85025; 96360; 99283